=== PATIENT | female | born 1935 | race Caucasian/White ===

== ENCOUNTER 2017-11-11 19:36 | Inpatient (IN) | payer OTHER ==
[~2017-11-11] VITALS: Ht 165.1 cm; Wt 72.7 kg
[2017-11-11] MEDS ORDERED: ACETAMINOPHEN 325 MG TAB PO ONE (20:00)
[2017-11-11] MEDS ORDERED: AZTREONAM 1GM INJ 1 GM in D5W 5% 50 ML IV ONE (20:45)
[2017-11-11] MEDS ORDERED: SODIUM CHLORIDE 0.9% 1,000 ML IV ONE (20:45)
[2017-11-11 20:53] LABS: Basophils # (auto) 0.1 uL; Basophils % (auto) 0.6 % (0.0-2.0); Eosinophils # (auto) 0.3 uL; Eosinophils % (auto) 3.7 % (0.0-7.0); Hematocrit 45.9 % (36.0-46.0); Lymphocytes # (auto) 0.9 uL; Lymphocytes % (auto) 10.4 % (10.0-50.0); Mean Corpuscular Hemoglobin 30.4 pg (28.0-32.0); Mean Corpuscular Hgb Conc. 34.8 g/dL (32.0-36.0); Mean Corpuscular Volume 87.3 fL (80.0-100.0); Monocytes # (auto) 0.7 uL; Monocytes % (auto) 7.6 % (0.0-12.0); Neutrophils # (auto) 6.9 uL; Neutrophils % (auto) 77.7 % (37.0-80.0); Nucleated Red Blood Cells % 0.2 %; Platelet Count (auto) 170 10^3/uL (140-450); Red Blood Cells 5.26 10^6/uL (4.0-5.20); Red Cell Distribution Width 14.2 % (11.8-14.3); White Blood Cell 8.9 10^3/uL (4.4-10.8)
[2017-11-11 21:05] LABS: INR 0.99 (0.9-1.15); Partial Thromboplastin Time 26.1 sec (22.64-33.71); Prothrombin Time 10.8 sec (9.37-12.3)
[2017-11-11] MEDS ORDERED: AZTREONAM 1 GM INJ VIAL ONE (21:09)
[2017-11-11 21:12] LABS: Lactic Acid w/Reflex 2.1 mmol/L (0.4-2.0)
[2017-11-11 21:14] LABS: Alanine Aminotransferase 31 U/L (13-56); Albumin 3.6 g/dL (3.4-5.0); Alkaline Phosphatase 76 U/L (45-117); Anion Gap 12 (5-15); Aspartate Aminotransferase 28 U/L (15-37); BUN/Creatinine Ratio 19.5; Bilirubin, Total 0.7 mg/dL (0.2-1.0); Blood Urea Nitrogen 17 mg/dL (7-18); Calcium 9.4 mg/dL (8.5-10.1); Carbon Dioxide 22 mmol/L (21-32); Chloride 100 mmol/L (98-107); GFR African American 81 mL/min; GFR Non-African American 67 mL/min; Glucose 157 mg/dL (74-106); Magnesium 2.1 mg/dL (1.6-2.6); Sodium 134 mmol/L (136-145); Total Protein 8.1 g/dL (6.4-8.2)
[2017-11-11 21:19] LABS: Urine Bacteria NONE SEEN /hpf (None Seen); Urine Blood TRACE /uL (Negative); Urine Budding Yeast MANY /hpf (None Seen); Urine Hyaline Cast MOD /lpf (0 - 2); Urine Mucus FEW (None Seen); Urine Specific Gravity 1.021 (1.001-1.035); Urine WBC 31 /hpf (0 - 5)
[2017-11-11] MEDS ORDERED: FLUCONAZOLE 200MG/100ML 100 ML IV ONE ×2 (22:12→22:15)
[2017-11-11] MEDS: POTASSIUM CHL 20MEQ/100ML 100 ML IV SCH (22:38)
[2017-11-12] MEDS: SODIUM CHLORIDE 0.9% 1,000 ML IV SCH ×3 (00:15→20:15)
[2017-11-12] MEDS ORDERED: ONDANSETRON HCL 4 MG/2 ML VIAL IV PRN (00:15)
[2017-11-12] MEDS ORDERED: DOCUSATE SOD 100 MG CAP PO PRN (00:15)
[2017-11-12] MEDS ORDERED: MORPHINE SULFATE 4 MG/ML SYR/VIAL IV PRN (00:15)
[2017-11-12] MEDS ORDERED: ACETAMINOPHEN 325 MG TAB PO PRN (00:15)
[2017-11-12] MEDS ORDERED: NITROGLYCERIN 0.4 MG SL TAB SL PRN (00:15)
[2017-11-12] MEDS ORDERED: VENL37.588 PO (00:21)
[2017-11-12] MEDS ORDERED: SIMV10TA84 PO (00:21)
[2017-11-12] MEDS ORDERED: DONE10TA40 PO (00:21)
[2017-11-12] MEDS ORDERED: ANAS1TAB6 PO (00:21)
[2017-11-12] MEDS: POTASSIUM CHL 20MEQ/100ML 100 ML IV SCH (00:29)
[2017-11-12] MEDS ORDERED: cefTRIAXone 1GM/10ml IVPUSH 10 ML IV ONE (01:00)
[2017-11-12] MEDS ORDERED: AZITHROMYCIN 500MG/ 250ML 250 ML IV ONE (01:00)
[2017-11-12 06:23] LABS: Basophils # (auto) 0 uL; Eosinophils # (auto) 0.5 uL; Eosinophils % (auto) 8.6 % (0.0-7.0); Hemoglobin 13.6 g/dL (12.2-16.2); Mean Corpuscular Hemoglobin 30.1 pg (28.0-32.0); Mean Corpuscular Volume 87.4 fL (80.0-100.0); Monocytes # (auto) 0.7 uL
[2017-11-12 06:33] LABS: Basophils % (auto) 0.8 % (0.0-2.0); Hematocrit 39.5 % (36.0-46.0); Lymphocytes # (auto) 1.5 uL; Lymphocytes % (auto) 25.3 % (10.0-50.0); Mean Corpuscular Hgb Conc. 34.4 g/dL (32.0-36.0); Monocytes % (auto) 11.9 % (0.0-12.0); Neutrophils # (auto) 3.1 uL; Neutrophils % (auto) 53.4 % (37.0-80.0); Nucleated Red Blood Cells % 0.1 %; Platelet Count (auto) 156 10^3/uL (140-450); Red Blood Cells 4.52 10^6/uL (4.0-5.20); Red Cell Distribution Width 14.2 % (11.8-14.3); White Blood Cell 5.8 10^3/uL (4.4-10.8)
[2017-11-12 06:40] LABS: BUN/Creatinine Ratio 22.2; Calcium 8.5 mg/dL (8.5-10.1); Potassium 3.4 mmol/L (3.5-5.1)
[2017-11-12] MEDS ORDERED: IOHEXOL 350 MG/ML 100ML IJ ONE (07:55)
[2017-11-12] MEDS: ENOXAPARIN SOD 40 MG/0.4 ML SYRINGE SC SCH (10:29)
[2017-11-12] MEDS: VENLAFAXINE HCL 37.5mg XR cap PO SCH (10:29)
[2017-11-12 15:00] VITALS: BP 157/70
[2017-11-12 17:00] VITALS: BP 177/69
[2017-11-12 20:00] VITALS: BP 156/92
[2017-11-12 22:00] VITALS: BP 156/92
[2017-11-12] MEDS ORDERED: cefTRIAXone 1GM/10ml IVPUSH 10 ML IV SCH (22:00)
[2017-11-12] MEDS ORDERED: AZITHROMYCIN 500MG/ 250ML 250 ML IV SCH (22:00)
[2017-11-12] MEDS ORDERED: DONEPEZIL HYDROCHLORIDE 5 MG TAB PO SCH (22:00)
[2017-11-13] MEDS ORDERED: cloNIDine HCL 0.1 MG TAB PO ONE (02:30)
[2017-11-13 05:00] VITALS: BP 116/74
[2017-11-13] MEDS: SODIUM CHLORIDE 0.9% 1,000 ML IV SCH ×2 (05:05→16:15)
[2017-11-13 05:16] LABS: Basophils # (auto) 0 uL; Basophils % (auto) 0.7 % (0.0-2.0); Eosinophils # (auto) 0.3 uL; Eosinophils % (auto) 4.9 % (0.0-7.0); Hematocrit 38.4 % (36.0-46.0); Hemoglobin 13.5 g/dL (12.2-16.2); Lymphocytes # (auto) 1.3 uL; Mean Corpuscular Hemoglobin 30.2 pg (28.0-32.0); Mean Corpuscular Hgb Conc. 35.1 g/dL (32.0-36.0); Monocytes # (auto) 0.6 uL; Neutrophils # (auto) 3.6 uL; Neutrophils % (auto) 62.4 % (37.0-80.0); Nucleated Red Blood Cells % 0.3 %; Platelet Count (auto) 176 10^3/uL (140-450); Red Blood Cells 4.47 10^6/uL (4.0-5.20); Red Cell Distribution Width 14.1 % (11.8-14.3); White Blood Cell 5.8 10^3/uL (4.4-10.8)
[2017-11-13 05:36] LABS: Calcium 8.6 mg/dL (8.5-10.1)
[2017-11-13 05:40] LABS: Potassium 2.3 mmol/L (3.5-5.1)
[2017-11-13] MEDS ORDERED: POTASSIUM CHL 20 Meq TABLET PO ONE (07:30)
[2017-11-13 08:00] VITALS: BP 143/87
[2017-11-13] MEDS: ENOXAPARIN SOD 40 MG/0.4 ML SYRINGE SC SCH (10:28)
[2017-11-13] MEDS: VENLAFAXINE HCL 37.5mg XR cap PO SCH (10:28)
[2017-11-13 12:00] VITALS: BP 158/97
[2017-11-13 12:42] LABS: BUN/Creatinine Ratio 19.2; Calcium 8.8 mg/dL (8.5-10.1); Potassium 3.2 mmol/L (3.5-5.1)
[2017-11-13 16:00] VITALS: BP 148/95
== END 2017-11-13 18:07 | disposition home or self-care (01) | DRG 871 ==
LOC: ER 19:36 → TELE 19:37 → TELE-WESTW 11-12 14:55
PROVIDERS: ADMIT Hospitalist; ATTEND Hospitalist
DX: A41.9 Sepsis, unspecified organism (principal); G92 Toxic encephalopathy; J18.9 Pneumonia, unspecified organism; N39.0 Urinary tract infection, site not specified; G30.9 Alzheimer's disease, unspecified; F02.80 Dementia in other diseases classified elsewhere, unspecified severity, without behavioral disturbance, psychotic disturbance, mood disturbance, and anxiety; F32.9 Major depressive disorder, single episode, unspecified; E78.5 Hyperlipidemia, unspecified; E87.6 Hypokalemia; Z85.3 Personal history of malignant neoplasm of breast; R09.02 Hypoxemia; Z86.73 Personal history of transient ischemic attack (TIA), and cerebral infarction without residual deficits; Z90.13 Acquired absence of bilateral breasts and nipples; Z90.710 Acquired absence of both cervix and uterus; Z74.01 Bed confinement status; Z90.49 Acquired absence of other specified parts of digestive tract
CPT/HCPCS: 36415; 36600; 51702; 71045; 71275; 80048; 80053; 81001; 82805; 83605; 83735; 83880; 84484; 85025; 85610; 85730; 86141; 87040; 87086; 93005; 96365; 96366; 96368; 96375; 99291; J1450; J3480; J7060

== ENCOUNTER 2017-11-17 12:03 | Observation (INO) | payer OTHER ==
[~2017-11-17] VITALS: Ht 167.6 cm; Wt 70.8 kg
[~2017-11-17 12:03] MED LIST: ANAS1TAB6 PO; DONE10TA40 PO; SIMV10TA84 PO; VENL37.588 PO
[2017-11-17] MEDS ORDERED: SODIUM CHLORIDE 0.9% 1,000 ML IVB ONE (13:03)
[2017-11-17 13:15] LABS: Basophils # (auto) 0.1 uL; Eosinophils # (auto) 0.4 uL; Hematocrit 44.2 % (36.0-46.0); Hemoglobin 15.5 g/dL (12.2-16.2); Lymphocytes # (auto) 2.5 uL; Lymphocytes % (auto) 24.4 % (10.0-50.0); Mean Corpuscular Hemoglobin 31.1 pg (28.0-32.0); Mean Corpuscular Hgb Conc. 34.9 g/dL (32.0-36.0); Monocytes # (auto) 0.9 uL; Monocytes % (auto) 8.6 % (0.0-12.0); Neutrophils # (auto) 6.3 uL; Nucleated Red Blood Cells % 0.1 %; Platelet Count (auto) 281 10^3/uL (140-450); Red Blood Cells 4.97 10^6/uL (4.0-5.20); Red Cell Distribution Width 14.5 % (11.8-14.3); White Blood Cell 10.2 10^3/uL (4.4-10.8)
[2017-11-17 13:31] LABS: Alanine Aminotransferase 77 U/L (13-56); Albumin 3.6 g/dL (3.4-5.0); Alkaline Phosphatase 81 U/L (45-117); Anion Gap 10 (5-15); Aspartate Aminotransferase 36 U/L (15-37); BUN/Creatinine Ratio 31.3; Bilirubin, Total 0.6 mg/dL (0.2-1.0); Blood Urea Nitrogen 21 mg/dL (7-18); Calcium 9.4 mg/dL (8.5-10.1); Carbon Dioxide 23 mmol/L (21-32); Chloride 104 mmol/L (98-107); GFR African American 109 mL/min; GFR Non-African American 90 mL/min; Glucose 136 mg/dL (74-106); Magnesium 2.3 mg/dL (1.6-2.6); Sodium 137 mmol/L (136-145)
[2017-11-17 13:32] LABS: Lactic Acid w/Reflex 2.6 mmol/L (0.4-2.0)
[2017-11-17 13:49] LABS: INR 1.01 (0.9-1.15)
[2017-11-17] MEDS ORDERED: POTASSIUM CHL 20 Meq TABLET PO ONE (15:15)
[2017-11-17] MEDS ORDERED: SODIUM CHLORIDE 0.9% 1,000 ML IV ONE (15:15)
[2017-11-17 15:46] VITALS: BP 186/99
[2017-11-17 16:32] LABS: Urine Bacteria NONE SEEN /hpf (None Seen); Urine Blood Negative /uL (Negative); Urine Budding Yeast FEW /hpf (None Seen); Urine Mucus FEW (None Seen); Urine WBC 22 /hpf (0 - 5)
[2017-11-17] MEDS ORDERED: cefTRIAXone 1GM/10ml IVPUSH 10 ML IV ONE (17:15)
== END 2017-11-17 18:13 | disposition home or self-care (01) | DRG 690 ==
LOC: ER 12:03 → OVERFLOW 13:04 → ER 18:13
PROVIDERS: ADMIT Family Medicine; ATTEND Family Medicine
DX: N39.0 Urinary tract infection, site not specified (principal); F03.90 Unspecified dementia, unspecified severity, without behavioral disturbance, psychotic disturbance, mood disturbance, and anxiety; E78.5 Hyperlipidemia, unspecified; F32.9 Major depressive disorder, single episode, unspecified; E87.6 Hypokalemia; Z85.3 Personal history of malignant neoplasm of breast; Z90.49 Acquired absence of other specified parts of digestive tract; Z90.10 Acquired absence of unspecified breast and nipple
CPT/HCPCS: 36415; 71045; 80053; 81001; 82962; 83605; 83735; 84484; 85025; 85610; 85730; 87040; 93005; 96361; 96374; 99285; G0378; J7030

== ENCOUNTER 2018-05-18 09:13 | Emergency (ER) | payer MEDICARE, MEDICAID ==
[~2018-05-18] VITALS: Ht 157.5 cm; Wt 54.4 kg
[~2018-05-18 09:13] MED LIST changes: -ANAS1TAB6 PO; +ANAS1TAB7 PO
[2018-05-18] MEDS ORDERED: SODIUM CHLORIDE 0.9% 500 ML IV ONE (10:00)
[2018-05-18] MEDS ORDERED: SODIUM CHLORIDE 0.9% 1,000 ML IV ONE (10:00)
[2018-05-18 10:11] LABS: Basophils # (auto) 0 uL; Basophils % (auto) 0.4 % (0.0-2.0); Eosinophils # (auto) 0.1 uL; Eosinophils % (auto) 1.2 % (0.0-7.0); Hematocrit 45.7 % (36.0-46.0); Hemoglobin 15.5 g/dL (12.2-16.2); Lymphocytes # (auto) 2.4 uL; Lymphocytes % (auto) 28.5 % (10.0-50.0); Mean Corpuscular Hemoglobin 29.8 pg (28.0-32.0); Mean Corpuscular Hgb Conc. 33.9 g/dL (32.0-36.0); Mean Corpuscular Volume 88.1 fL (80.0-100.0); Monocytes # (auto) 0.5 uL; Monocytes % (auto) 6.1 % (0.0-12.0); Neutrophils # (auto) 5.4 uL; Neutrophils % (auto) 63.8 % (37.0-80.0); Platelet Count (auto) 190 10^3/uL (140-450); Red Blood Cells 5.19 10^6/uL (4.0-5.20); Red Cell Distribution Width 13.9 % (11.8-14.3); White Blood Cell 8.4 10^3/uL (4.4-10.8)
[2018-05-18 10:27] LABS: Alanine Aminotransferase 23 U/L (13-56); Albumin 3.6 g/dL (3.4-5.0); Alkaline Phosphatase 64 U/L (45-117); Anion Gap 10 (5-15); Aspartate Aminotransferase 14 U/L (15-37); BUN/Creatinine Ratio 27.3; Bilirubin, Total 0.6 mg/dL (0.2-1.0); Blood Urea Nitrogen 21 mg/dL (7-18); Calcium 9.1 mg/dL (8.5-10.1); Carbon Dioxide 25 mmol/L (21-32); Chloride 105 mmol/L (98-107); GFR African American 93 mL/min; GFR Non-African American 77 mL/min; Glucose 118 mg/dL (74-106); Magnesium 2.2 mg/dL (1.6-2.6); Potassium 3.1 mmol/L (3.5-5.1); Sodium 140 mmol/L (136-145)
[2018-05-18 11:14] LABS: Urine Bacteria FEW /hpf (None Seen); Urine Blood 2+ /uL (Negative); Urine Budding Yeast MODERATE /hpf (None Seen); Urine Hyaline Cast FEW /lpf (0 - 2); Urine Mucus FEW (None Seen); Urine WBC 164 /hpf (0 - 5)
[2018-05-18] MEDS ORDERED: cefTRIAXone 1GM/10ml IVPUSH 10 ML IV ONE (13:15)
[2018-05-18] MEDS ORDERED: POTASSIUM EFFERVESENT TAB 25 MEQ PO ONE (13:30)
[2018-05-18 15:53] VITALS: BP 160/72
== END 2018-05-18 16:12 | disposition home or self-care (01) ==
LOC: EDBD 09:13 → ER 09:13
DX: E87.6 Hypokalemia (principal); N39.0 Urinary tract infection, site not specified; E78.5 Hyperlipidemia, unspecified; Z90.710 Acquired absence of both cervix and uterus; Z90.49 Acquired absence of other specified parts of digestive tract
CPT/HCPCS: 36415; 51702; 71046; 80053; 81001; 83735; 84484; 85025; 93005; 94761; 96374; 99285; J0696

== ENCOUNTER 2018-05-29 10:49 | Inpatient (IN) | payer MEDICARE, MEDICAID ==
[~2018-05-29] VITALS: Ht 170.2 cm; Wt 70.0 kg
[2018-05-29 11:35] LABS: Basophils # (auto) 0 uL; Basophils % (auto) 0.2 % (0.0-2.0); Eosinophils # (auto) 0 uL; Eosinophils % (auto) 0.3 % (0.0-7.0); Hematocrit 50.5 % (36.0-46.0); Lymphocytes # (auto) 1.4 uL; Lymphocytes % (auto) 11.1 % (10.0-50.0); Mean Corpuscular Hemoglobin 30.4 pg (28.0-32.0); Mean Corpuscular Hgb Conc. 33.6 g/dL (32.0-36.0); Mean Corpuscular Volume 90.5 fL (80.0-100.0); Monocytes # (auto) 0.8 uL; Monocytes % (auto) 6.4 % (0.0-12.0); Neutrophils # (auto) 10.1 uL; Nucleated Red Blood Cells % 0.2 %; Platelet Count (auto) 195 10^3/uL (140-450); Red Blood Cells 5.58 10^6/uL (4.0-5.20); Red Cell Distribution Width 14.1 % (11.8-14.3); White Blood Cell 12.3 10^3/uL (4.4-10.8)
[2018-05-29 11:50] LABS: INR 1.07 (0.9-1.15); Partial Thromboplastin Time 27.1 sec (23.78-33.04); Prothrombin Time 11.4 sec (9.27-12.13)
[2018-05-29 12:04] LABS: Alanine Aminotransferase 24 U/L (13-56); Albumin 3.5 g/dL (3.4-5.0); Alkaline Phosphatase 72 U/L (45-117); Anion Gap 9 (5-15); Aspartate Aminotransferase 24 U/L (15-37); BUN/Creatinine Ratio 15.7; Bilirubin, Total 0.8 mg/dL (0.2-1.0); Blood Urea Nitrogen 13 mg/dL (7-18); Calcium 9.4 mg/dL (8.5-10.1); Carbon Dioxide 22 mmol/L (21-32); Chloride 104 mmol/L (98-107); GFR African American 85 mL/min; GFR Non-African American 70 mL/min; Glucose 138 mg/dL (74-106); Magnesium 2.3 mg/dL (1.6-2.6); Potassium 3.3 mmol/L (3.5-5.1); Sodium 135 mmol/L (136-145); Total Protein 8.5 g/dL (6.4-8.2)
[2018-05-29] MEDS ORDERED: SODIUM CHLORIDE 0.9% 500 ML IV ONE (15:00)
[2018-05-29] MEDS ORDERED: CIPR-173 PO (15:11)
[2018-05-29] MEDS ORDERED: SODIUM CHLORIDE 0.9% 1,000 ML IV ONE (15:15)
[2018-05-29] MEDS ORDERED: HYDROcodone-ACET 5/325MG TAB PO PRN (15:30)
[2018-05-29] MEDS ORDERED: MORPHINE SULFATE 4 MG/ML SYR/VIAL IV PRN ×2 (15:30)
[2018-05-29] MEDS ORDERED: NITROGLYCERIN 0.4 MG SL TAB SL PRN (15:30)
[2018-05-29] MEDS ORDERED: SOD CHL 0.9%/ KCL 40MEQ 1,000 ML IV ONE (15:30)
[2018-05-29] MEDS ORDERED: LORazepam 0.5 MG TAB PO PRN (15:30)
[2018-05-29] MEDS ORDERED: ONDANSETRON HCL 4 MG/2 ML VIAL IV PRN (15:30)
[2018-05-29] MEDS ORDERED: LACTULOSE 20Gm/30ML SOLN PO PRN (15:30)
[2018-05-29] MEDS ORDERED: LABETALOL HCL 5 MG/ML ML 20ML VIAL IV PRN (15:30)
[2018-05-29] MEDS ORDERED: TEMAZEPAM 15 MG CAP PO PRN (15:30)
[2018-05-29] MEDS ORDERED: ACETAMINOPHEN 500 MG TAB PO PRN (15:30)
[2018-05-29 16:15] LABS: Urine Bacteria FEW /hpf (None Seen); Urine Blood Negative /uL (Negative); Urine Budding Yeast MANY /hpf (None Seen); Urine Mucus FEW (None Seen); Urine Specific Gravity 1.017 (1.001-1.035); Urine WBC 21 /hpf (0 - 5)
[2018-05-29] MEDS ORDERED: FLUCONAZOLE 200MG/100ML 100 ML IV ONE (16:30)
[2018-05-29] MEDS ORDERED: cefTRIAXone 1GM/10ml IVPUSH 10 ML IV ONE (16:30)
[2018-05-29] MEDS ORDERED: NYSTATIN TOPICAL POWDER 15GM TOP ONE (16:30)
[2018-05-29 21:50] VITALS: BP 159/93
[2018-05-29 22:00] VITALS: BP 159/93
[2018-05-29] MEDS: PRAVASTATIN SODIUM 20 MG TAB PO SCH (22:12)
[2018-05-29] MEDS: DONEPEZIL HYDROCHLORIDE 5 MG TAB PO SCH (22:12)
[2018-05-29] MEDS: NYSTATIN TOPICAL POWDER 15GM TOP SCH (22:33)
[2018-05-30 05:07] VITALS: BP 157/89
[2018-05-30] MEDS: cefTRIAXone 1GM/10ml IVPUSH 10 ML IV SCH (09:00)
[2018-05-30 09:20] VITALS: BP 138/82
[2018-05-30] MEDS: Anastrozole 1 MG PO SCH (10:00)
[2018-05-30] MEDS ORDERED: ENOXAPARIN SOD 40 MG/0.4 ML SYRINGE SC SCH (10:00)
[2018-05-30] MEDS: FLUCONAZOLE 200MG/100ML 100 ML IV SCH (11:06)
[2018-05-30] MEDS: ASPirin 81 mg TAB PO SCH (11:06)
[2018-05-30] MEDS: NYSTATIN TOPICAL POWDER 15GM TOP SCH ×2 (11:07→21:53)
[2018-05-30] MEDS: PANTOPRAZOLE 40 MG TAB PO SCH (11:07)
[2018-05-30] MEDS: VENLAFAXINE HCL 37.5mg XR cap PO SCH (11:07)
[2018-05-30] MEDS: SODIUM CHLORIDE 0.9% 1,000 ML IV SCH ×2 (12:30→20:30)
[2018-05-30 13:00] VITALS: BP 152/74
[2018-05-30 17:00] VITALS: BP 154/79
[2018-05-30 20:00] VITALS: BP 135/68
[2018-05-30] MEDS: PRAVASTATIN SODIUM 20 MG TAB PO SCH (21:49)
[2018-05-30] MEDS: DONEPEZIL HYDROCHLORIDE 5 MG TAB PO SCH (21:49)
[2018-05-30 22:00] VITALS: BP 135/68
[2018-05-31] MEDS: SODIUM CHLORIDE 0.9% 1,000 ML IV SCH ×3 (04:30→20:36)
[2018-05-31 05:45] VITALS: BP 141/81
[2018-05-31 08:00] VITALS: BP 161/82
[2018-05-31 09:00] VITALS: BP 161/82
[2018-05-31] MEDS: cefTRIAXone 1GM/10ml IVPUSH 10 ML IV SCH (09:35)
[2018-05-31] MEDS: FLUCONAZOLE 200MG/100ML 100 ML IV SCH (09:35)
[2018-05-31] MEDS: NYSTATIN TOPICAL POWDER 15GM TOP SCH ×2 (09:36→22:40)
[2018-05-31] MEDS: Anastrozole 1 MG PO SCH (09:36)
[2018-05-31] MEDS: ASPirin 81 mg TAB PO SCH (09:36)
[2018-05-31] MEDS: PANTOPRAZOLE 40 MG TAB PO SCH (09:36)
[2018-05-31] MEDS: VENLAFAXINE HCL 37.5mg XR cap PO SCH (09:36)
[2018-05-31 13:00] VITALS: BP 136/75
[2018-05-31 17:00] VITALS: BP 161/99
[2018-05-31 22:00] VITALS: BP 150/89
[2018-05-31] MEDS: DONEPEZIL HYDROCHLORIDE 5 MG TAB PO SCH (22:40)
[2018-05-31] MEDS: PRAVASTATIN SODIUM 20 MG TAB PO SCH (22:40)
[2018-06-01] MEDS: SODIUM CHLORIDE 0.9% 1,000 ML IV SCH ×2 (04:52→12:30)
[2018-06-01 04:54] VITALS: BP 146/82
[2018-06-01 07:36] LABS: Basophils # (auto) 0 uL; Basophils % (auto) 0.4 % (0.0-2.0); Eosinophils # (auto) 0.1 uL; Eosinophils % (auto) 1.3 % (0.0-7.0); Hemoglobin 15.2 g/dL (12.2-16.2); Lymphocytes # (auto) 1.9 uL; Lymphocytes % (auto) 19.3 % (10.0-50.0); Mean Corpuscular Hgb Conc. 35.5 g/dL (32.0-36.0); Mean Corpuscular Volume 87.5 fL (80.0-100.0); Monocytes # (auto) 0.7 uL; Monocytes % (auto) 6.8 % (0.0-12.0); Neutrophils # (auto) 7.1 uL; Neutrophils % (auto) 72.2 % (37.0-80.0); Nucleated Red Blood Cells % 0.1 %; Platelet Count (auto) 211 10^3/uL (140-450); Red Blood Cells 4.91 10^6/uL (4.0-5.20); Red Cell Distribution Width 13.3 % (11.8-14.3); White Blood Cell 9.8 10^3/uL (4.4-10.8)
[2018-06-01 07:41] LABS: BUN/Creatinine Ratio 16.3; Calcium 8.6 mg/dL (8.5-10.1)
[2018-06-01 07:43] LABS: Bilirubin, Total 0.6 mg/dL (0.2-1.0); Total Protein 7.8 g/dL (6.4-8.2)
[2018-06-01 08:00] VITALS: BP 134/75
[2018-06-01] MEDS: ASPirin 81 mg TAB PO SCH (09:05)
[2018-06-01] MEDS: PANTOPRAZOLE 40 MG TAB PO SCH (09:05)
[2018-06-01] MEDS: Anastrozole 1 MG PO SCH (09:05)
[2018-06-01] MEDS: cefTRIAXone 1GM/10ml IVPUSH 10 ML IV SCH (09:05)
[2018-06-01] MEDS: FLUCONAZOLE 200MG/100ML 100 ML IV SCH (09:05)
[2018-06-01] MEDS: VENLAFAXINE HCL 37.5mg XR cap PO SCH (09:05)
[2018-06-01 09:08] VITALS: BP 154/74
[2018-06-01] MEDS: NYSTATIN TOPICAL POWDER 15GM TOP SCH (09:19)
== END 2018-06-01 13:22 | DRG 871 ==
LOC: EDBD 10:49 → ER 10:52 → TELE 10:53 → TELE-WESTW 21:45
PROVIDERS: ADMIT Internal Medicine; ATTEND Family Medicine
DX: A41.9 Sepsis, unspecified organism (principal); G93.41 Metabolic encephalopathy; E87.1 Hypo-osmolality and hyponatremia; B37.49 Other urogenital candidiasis; E16.2 Hypoglycemia, unspecified; G30.9 Alzheimer's disease, unspecified; F02.80 Dementia in other diseases classified elsewhere, unspecified severity, without behavioral disturbance, psychotic disturbance, mood disturbance, and anxiety; E87.6 Hypokalemia; E78.00 Pure hypercholesterolemia, unspecified; E86.0 Dehydration; F17.200 Nicotine dependence, unspecified, uncomplicated; F32.9 Major depressive disorder, single episode, unspecified; I67.2 Cerebral atherosclerosis; Z79.82 Long term (current) use of aspirin; Z79.899 Other long term (current) drug therapy; Z85.3 Personal history of malignant neoplasm of breast; Z86.73 Personal history of transient ischemic attack (TIA), and cerebral infarction without residual deficits; Z90.13 Acquired absence of bilateral breasts and nipples; Z90.710 Acquired absence of both cervix and uterus; Z90.49 Acquired absence of other specified parts of digestive tract
CPT/HCPCS: 36415; 51702; 70450; 71045; 80053; 81001; 82550; 82607; 83735; 84443; 84484; 85025; 85610; 85730; 87040; 87081; 87086; 93005; 94761; 95819; 96361; 96374; 96375; J0696; J1450; J2405

== ENCOUNTER 2018-07-24 20:26 | Emergency (ER) | payer MEDICARE, MEDICAID ==
[~2018-07-24] VITALS: Ht 157.5 cm; Wt 59.0 kg
[~2018-07-24 20:26] MED LIST changes: +CIPR-173 PO
[2018-07-24 21:58] LABS: Albumin 3.7 g/dL (3.4-5.0); BUN/Creatinine Ratio 16.1; Calcium 9.6 mg/dL (8.5-10.1); Potassium 3.6 mmol/L (3.5-5.1)
[2018-07-24 22:01] LABS: Bilirubin, Total 0.6 mg/dL (0.2-1.0); Total Protein 7.9 g/dL (6.4-8.2)
[2018-07-24 22:02] LABS: Basophils % (auto) 0.3 % (0.0-2.0); Eosinophils % (auto) 0.8 % (0.0-7.0); Lymphocytes % (auto) 20.7 % (10.0-50.0); Monocytes % (auto) 7.5 % (0.0-12.0); Neutrophils % (auto) 70.7 % (37.0-80.0); White Blood Cell 10.8 10^3/uL (4.4-10.8)
[2018-07-24 22:03] LABS: Basophils # (auto) 0 uL; Eosinophils # (auto) 0.1 uL; Hematocrit 49.5 % (36.0-46.0); Hemoglobin 16.7 g/dL (12.2-16.2); Lymphocytes # (auto) 2.2 uL; Mean Corpuscular Hemoglobin 29.8 pg (28.0-32.0); Mean Corpuscular Hgb Conc. 33.8 g/dL (32.0-36.0); Mean Corpuscular Volume 88.2 fL (80.0-100.0); Monocytes # (auto) 0.8 uL; Neutrophils # (auto) 7.7 uL
[2018-07-24 22:04] LABS: Platelet Count (auto) 164 10^3/uL (140-450)
[2018-07-24 22:35] LABS: Urine Amorphous Crystal FEW /hpf (None Seen); Urine Bacteria FEW /hpf (None Seen); Urine Blood Negative /uL (Negative); Urine Specific Gravity 1.007 (1.001-1.035); Urine WBC 11 /hpf (0 - 5)
[2018-07-25 11:20] VITALS: BP 122/58
== END 2018-07-25 11:21 | disposition home or self-care (01) ==
LOC: EDBD 20:26 → ER 20:31
DX: M25.552 Pain in left hip (principal); M25.551 Pain in right hip; R10.2 Pelvic and perineal pain; F03.90 Unspecified dementia, unspecified severity, without behavioral disturbance, psychotic disturbance, mood disturbance, and anxiety; F32.9 Major depressive disorder, single episode, unspecified; E78.5 Hyperlipidemia, unspecified; R41.82 Altered mental status, unspecified; Z87.440 Personal history of urinary (tract) infections; Z90.49 Acquired absence of other specified parts of digestive tract; Z90.710 Acquired absence of both cervix and uterus; W06.XXXA Fall from bed, initial encounter; Y93.89 Activity, other specified; Y92.89 Other specified places as the place of occurrence of the external cause; Y99.8 Other external cause status
CPT/HCPCS: 36415; 70450; 71045; 72192; 80053; 81001; 83880; 84484; 85025; 93005